=== PATIENT | female | born 1980 | race Caucasian/White ===

== ENCOUNTER 2023-04-08 11:13 | Emergency (ER) | payer BC ==
[2023-04-08 11:26] VITALS: BP 148/90; PULSE 100; RESP 17; TEMP 98.2; BMI 22.6
[2023-04-08 11:47] LABS: HEMATOCRIT 42.2 % (32.4-45.2); HEMOGLOBIN 14.2 G/dL (10.7-15.3); MCH 28.2 pg (25.7-33.7); MCHC 33.6 g/dl (32.0-36.0); MEAN CELL VOLUME 83.8 fl (80-96); MEAN PLT VOLUME 8.6 fl (7.5-11.1); PLATELET COUNT 269.9 10^3/uL (134-434); RBC 5.04 10^6/uL (3.60-5.2); RDW 14.4 % (11.6-15.6); WHITE BLOOD COUNT 6.6 10^3/uL (4.0-10.8)
[2023-04-08 12:01] LABS: BILIRUBIN,TOTAL 0.5 mg/dl (0.2-1); CALCIUM 9.9 mg/dl (8.5-10.1); CREATININE 0.9 mg/dl (0.6-1.3); POTASSIUM 4.1 mmol/L (3.5-5.1); TOT PROT 7.5 g/dl (6.4-8.2)
[2023-04-08 12:56] LABS: PLATELET ESTIMATE ADEQUATE
== END 2023-04-08 13:14 | disposition home or self-care (01) ==
LOC: FER 11:13
DX: R07.89 Other chest pain (principal); X50.0XXA Overexertion from strenuous movement or load, initial encounter
CPT/HCPCS: 36415; 71045-TC-FY; 80053; 84484; 85027; 93005; 99285-25